=== PATIENT | male | born 1970 ===

== ENCOUNTER 2021-07-26 21:51 | Observation (INO) ==
[2021-07-26] MEDS ORDERED: Enoxaparin 40 MG/0.4 ML SYR SUBCUT SCH (23:45)
[2021-07-26] MEDS ORDERED: Ondansetron 4 mg VIAL 2 MG/ML 2 ml VIAL IV PRN (23:51)
[2021-07-26] MEDS ORDERED: Dextrose 50% Syringe 50 ml 25 GM/50 ML SYRINGE IV PUSH PRN (23:55)
[2021-07-27] MEDS: NS 0.9% 1000 ml BAG 1,000 ML IV SCH ×2 (00:17→10:22)
[2021-07-27] MEDS ORDERED: Heparin 5000 UNITS/ML 1 mL VIAL IV SCH (01:00)
[2021-07-27] MEDS ORDERED: Heparin DRIP 25,000 UNITS BAG 25,000 UNITS/500 ML BAG IV SCH (01:00)
[2021-07-27 01:36] LABS: eGFR CKD-EPI 99.4 (>60)
[2021-07-27 01:39] LABS: Hematocrit 45 % (42-52); Hemoglobin 15.3 g/dL (14.0-18.0); Mean Corpuscular HGB Conc 34 g/dL (31-36); Mean Corpuscular Hemoglobin 30 pg (27-31); Mean Corpuscular Volume 90 fL (80-94); Mean Platelet Volume 8.8 fL (7.4-10.4); Platelet Count 204 10^3/uL (150-450); Red Blood Count 5.04 10^6 /uL (4.18-5.48); Red Cell Distribution Width 14 % (10-15); White Blood Count 5.9 10^3/uL (3.5-10.8)
[2021-07-27 01:42] LABS: ABS Basophils 0.1 10^3/ul (0-0.2); ABS Eosinophils 0.3 10^3/ul (0-0.6); ABS Lymphocytes 2.2 10^3/ul (1.0-4.8); ABS Monocytes 0.5 10^3/ul (0-0.8); ABS Neutrophils 2.9 10^3/ul (1.5-7.7); Eosinophil % 5.3 %; Lymphocyte % 36.6 %; Nucleated Red Blood Cells % 0.1
[2021-07-27 05:23] LABS: ABS Basophils 0.1 10^3/ul (0-0.2); ABS Eosinophils 0.3 10^3/ul (0-0.6); ABS Lymphocytes 2.2 10^3/ul (1.0-4.8); ABS Monocytes 0.4 10^3/ul (0-0.8); ABS Neutrophils 2.6 10^3/ul (1.5-7.7); Eosinophil % 5.9 %; Hematocrit 46 % (42-52); Hemoglobin 15.5 g/dL (14.0-18.0); Lymphocyte % 39.7 %; Mean Corpuscular HGB Conc 34 g/dL (31-36); Mean Corpuscular Hemoglobin 30 pg (27-31); Mean Corpuscular Volume 90 fL (80-94); Mean Platelet Volume 9.1 fL (7.4-10.4); Platelet Count 174 10^3/uL (150-450); Red Blood Count 5.13 10^6 /uL (4.18-5.48); Red Cell Distribution Width 14 % (10-15); White Blood Count 5.6 10^3/uL (3.5-10.8)
[2021-07-27 05:45] LABS: Albumin/Globulin Ratio 2.4 (1-3); Calcium 9.1 mg/dL (8.6-10.3); Globulin 1.7 g/dL (2-4); Magnesium 2.1 mg/dL (1.9-2.7); Potassium 4.2 mmol/L (3.5-5.0); Total Bilirubin 0.7 mg/dL (0.2-1.0); Total Protein 5.7 g/dL (6.4-8.9); eGFR CKD-EPI 95.7 (>60)
[2021-07-27] MEDS ORDERED: Regadenoson 0.4 MG/5 ML SYRINGE ONE (12:06)
[2021-07-27] MEDS ORDERED: Aminophylline 25 MG/ML VIAL ONE (12:06)
[2021-07-27 13:00] VITALS: BP 129/83
== END 2021-07-27 15:59 | disposition home or self-care (01) ==
LOC: MEDTELE 21:51 → SUATTDRO 21:51 → INTOOBSV 21:51
PROVIDERS: ADMIT Internal Medicine; ATTEND Student in an Organized Health Care Education/Training Program